=== PATIENT | male | born 1960 | race Caucasian/White ===

== ENCOUNTER 2017-07-22 10:18 | Inpatient (IN) | payer OTHER ==
[2017-07-22 10:40] VITALS: BMI 23.6
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
[2017-07-22] MEDS ORDERED: MAGNESIUM HYDROX 2400MG/30ML ORAL SUSPENSION 30 ML CUP PO PRN (11:32)
[2017-07-22] MEDS ORDERED: hydrOXYzine PAMOATE 50 MG CAPSULE (FP) PO PRN (11:32)
[2017-07-22] MEDS ORDERED: MAG HYDROX/AL HYDROX/SIMETH 30 ML UNIT-DOSE CUP PO PRN (11:32)
[2017-07-22] MEDS ORDERED: NICOTINE POLACRILEX 4 MG GUM BUC PRN (11:32)
[2017-07-22] MEDS ORDERED: P-EPHED 60MG/TRIPROLIDI 2.5MG TABLET PO PRN (11:32)
[2017-07-22] MEDS ORDERED: guaiFENesin/D-METHORPHAN HB 10 ML UNIT-DOSE CUPS PO PRN (11:32)
[2017-07-22] MEDS ORDERED: LOPERAMIDE HCL 2 MG CAPSULE PO PRN (11:32)
[2017-07-22] MEDS ORDERED: chlordiazePOXIDE HCL 25 MG CAPSULE PO ONE (11:32)
[2017-07-22] MEDS ORDERED: ACETAMINOPHEN 325 MG TABLET (FP) PO PRN (11:32)
[2017-07-22] MEDS ORDERED: MENTHOL/PHENOL 1 EACH UD MM PRN (11:32)
[2017-07-22] MEDS ORDERED: chlordiazePOXIDE HCL 25 MG CAPSULE PO PRN (11:32)
[2017-07-22] MEDS ORDERED: MAGNESIUM CITRATE 300 ML BOTTLE PO PRN (11:32)
[2017-07-22] MEDS: LISINOPRIL 5 MG TABLET (FP) PO SCH (13:12)
[2017-07-22] MEDS: PANTOPRAZOLE 40 MG TABLET (FP) PO SCH (13:12)
[2017-07-22] MEDS: METOPROLOL TARTRATE 50 MG TABLET (FP) PO SCH ×2 (13:12→22:19)
[2017-07-22] MEDS: ATORVASTATIN CA 10 MG TABLET (FP) PO SCH ×2 (13:36→22:19)
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
[2017-07-22] MEDS: chlordiazePOXIDE HCL 25 MG CAPSULE PO SCH ×2 (17:23→22:19)
[2017-07-22] MEDS: risperiDONE 1 MG TABLET (FP) PO SCH ×2 (17:45→22:19)
[2017-07-22 20:07] LABS: URINE APPEARANCE CLEAR; URINE BILIRUBIN NEGATIVE (NEGATIVE); URINE BLOOD 1+ (NEGATIVE); URINE COLOR YELLOW; URINE GLUCOSE (UA) NEGATIVE (NEGATIVE); URINE KETONE NEGATIVE (NEGATIVE); URINE NITRITE NEGATIVE (NEGATIVE); URINE UROBILINOGEN NEGATIVE mg/dL (0.2-1.0)
[2017-07-22 20:08] LABS: URINE PROTEIN 1+ (NEGATIVE)
[2017-07-22 20:11] LABS: URINE HYALINE CAST 3 /lpf; URINE MUCUS RARE; URINE RBC <1 /hpf (0-3); URINE WBC 1 /hpf (3-5)
[2017-07-22 21:47] LABS: URINE LEUK ESTERASE Negative (NEGATIVE)
[2017-07-22] MEDS: THIAMINE HCL 100 MG TABLET (FP) PO SCH (22:19)
[2017-07-23] MEDS: chlordiazePOXIDE HCL 25 MG CAPSULE PO SCH ×4 (05:10→22:11)
--- NOTE | 2017-07-23 09:40 | PN ---
S CIWA - CIWA Score Nausea/Vomitin Muscle Tremors: 3 Anxiety: 3 Agitation: 2 Paroxysmal Sweats: 1-Minimal Palms Moist Orientation: 0-Oriented Tacttile Disturbances: 1-Very Mild Itch/Numbness Auditory Disturbances: 1-Very Mild Visual Disturbances: 0-None Headache: 2-Mild CIWA-Ar Total Score: 16 BHS Progress Note (SOAP) Subjective: alert,irritable,anxious,interrupted sleep,tremor Objective: 07/23/17 09:39 Vital Signs Temperature 98 F 07/23/17 09:34 Pulse Rate 71 07/23/17 09:34 Respiratory Rate 16 07/23/17 09:34 Blood Pressure 134/81 07/23/17 09:34 O2 Sat by Pulse Oximetry (%) ekg nsr,normal ecg Laboratory Last Values Manual Slide Review No Result Required. 07/23/17 07:40 Urine Color Yellow 07/22/17 19:00 Urine Appearance Clear 07/22/17 19:00 Urine pH 5.0 (5.0-8.0) 07/22/17 19:00 Ur Specific [place] 1.013 (1.001-1.035) 07/22/17 19:00 Urine Protein 1+ (NEGATIVE) H 07/22/17 19:00 Urine Glucose (UA) Negative (NEGATIVE) 07/22/17 19:00 Urine Ketones Negative (NEGATIVE) 07/22/17 19:00 Urine Blood 1+ (NEGATIVE) H 07/22/17 19:00 Urine Nitrite Negative (NEGATIVE) 07/22/17 19:00 Urine Bilirubin Negative (NEGATIVE) 07/22/17 19:00 Urine Urobilinogen Negative mg/dL (0.2-1.0) 07/22/17 19:00 Ur Leukocyte Esterase Negative (NEGATIVE) 07/22/17 19:00 Urine WBC (Auto) 1 /hpf (3-5) 07/22/17 19:00 Urine RBC (Auto) <1 /hpf (0-3) 07/22/17 19:00 Hyaline Casts 3 /lpf 07/22/17 19:00 Urine Mucus Rare 07/22/17 19:00 labs pending Assessment: 07/23/17 09:39 withdrawal symptom Plan: continue detox
[2017-07-23 10:12] LABS: MCH 32.9 pg (25.7-33.7); MCHC 33.1 g/dl (32.0-35.9); MEAN CELL VOLUME 99.4 fl (80-96); MEAN PLT VOLUME 9.6 fl (7.5-11.1); PLATELET COUNT 154 K/MM3 (134-434); RDW 16.4 % (11.9-15.9); WHITE BLOOD COUNT 6.2 K/mm3 (4.0-10.0)
[2017-07-23 10:26] LABS: ALBUMIN 3.2 g/dl (3.4-5.0); ALK PHOS 86 U/L (45-117); ANION GAP 9 (8-16); BILIRUBIN,TOTAL 0.6 mg/dL (0.2-1.0); CALCIUM 8.2 mg/dL (8.5-10.1); CO2 24 mmol/L (21-32); CREATININE 1.6 mg/dL (0.7-1.3); GLUCOSE,RANDOM 98 mg/dL (74-106); SGOT/AST 43 U/L (15-37); SGPT/ALT 44 U/L (12-78); TOT PROT 6.3 g/dl (6.4-8.2)
[2017-07-23] MEDS: ASPIRIN COATED 81 MG TABLET.EC PO SCH (10:28)
[2017-07-23] MEDS: CITALOPRAM HYDROBROMIDE 20 MG TABLET (FP) PO SCH (10:28)
[2017-07-23] MEDS: risperiDONE 1 MG TABLET (FP) PO SCH ×2 (10:28→22:11)
[2017-07-23] MEDS: PRENATAL VITAMINS W/ FOLIC ACID TABLET (FP) PO SCH (10:28)
[2017-07-23] MEDS: PANTOPRAZOLE 40 MG TABLET (FP) PO SCH (10:28)
[2017-07-23] MEDS: LISINOPRIL 5 MG TABLET (FP) PO SCH (11:08)
[2017-07-23] MEDS: METOPROLOL TARTRATE 50 MG TABLET (FP) PO SCH ×2 (11:19→22:11)
[2017-07-23] MEDS: ATORVASTATIN CA 10 MG TABLET (FP) PO SCH (22:11)
[2017-07-23] MEDS: THIAMINE HCL 100 MG TABLET (FP) PO SCH (22:11)
--- NOTE | 2017-07-24 03:05 | PN ---
[facility] Progress Note Note: Patient was found on the floor as per nurse. Patient was seen and examined at bedside. He reports minimal pain at this time and alleged that he hit his head when he fell. No injury, confusion or change in mental status noted on examination. He is alert and oriented to person, place and time. V/S B/P 148/89 , HR 64, RR 16 Temp. 96.8F. Patient is to be transferred to ER for further evaluation. Endorsed to NAWAF Biswas in ER
[2017-07-24] MEDS: chlordiazePOXIDE HCL 25 MG CAPSULE PO SCH ×2 (07:24→10:24)
[2017-07-24] MEDS ORDERED: LISINOPRIL 20 MG TABLET (FP) PO SCH (10:00)
[2017-07-24] MEDS: risperiDONE 1 MG TABLET (FP) PO SCH (10:21)
[2017-07-24] MEDS: METOPROLOL TARTRATE 50 MG TABLET (FP) PO SCH ×2 (10:21→22:15)
[2017-07-24] MEDS: CITALOPRAM HYDROBROMIDE 20 MG TABLET (FP) PO SCH (10:21)
[2017-07-24] MEDS: PRENATAL VITAMINS W/ FOLIC ACID TABLET (FP) PO SCH (10:21)
[2017-07-24] MEDS: PANTOPRAZOLE 40 MG TABLET (FP) PO SCH (10:21)
[2017-07-24] MEDS: ASPIRIN COATED 81 MG TABLET.EC PO SCH (10:22)
--- NOTE | 2017-07-24 10:37 | PN ---
[facility] CIWA - CIWA Score Nausea/Vomitin-No Nausea/No Vomiting Muscle Tremors: 4-Moderate,w/Arms Extend Anxiety: 3 Agitation: 4-Moderately Restless Paroxysmal Sweats: 3 Orientation: 0-Oriented Tacttile Disturbances: 0-None Auditory Disturbances: 0-None Visual Disturbances: 0-None Headache: 0-None Present CIWA-Ar Total Score: 14 BHS Progress Note (SOAP) Subjective: sweats shakes body aches Objective: 07/24/17 10:36 Vital Signs Temperature 97.7 F 07/24/17 09:26 Pulse Rate 60 07/24/17 09:26 Respiratory Rate 18 07/24/17 09:26 Blood Pressure 147/86 07/24/17 09:26 O2 Sat by Pulse Oximetry (%) Laboratory Tests 07/22/17 07/23/17 07/23/17 19:00 07:40 07:40 WBC 6.2 RBC 4.02 Hgb 13.2 D Hct 39.9 MCV 99.4 H MCH 32.9 MCHC 33.1 RDW 16.4 H Plt Count 154 MPV 9.6 Manual Slide Review No Result Required. Sodium 139 Potassium 3.6 Chloride 106 Carbon Dioxide 24 Anion Gap 9 BUN 17 D Creatinine 1.6 H Creat Clearance w eGFR 44.46 Random Glucose 98 Calcium 8.2 L Total Bilirubin 0.6 D AST 43 H D ALT 44 D Alkaline Phosphatase 86 D Total Protein 6.3 L Albumin 3.2 L Urine Color Yellow Urine Appearance Clear Urine pH 5.0 Ur Specific [place] 1.013 Urine Protein 1+ H Urine Glucose (UA) Negative Urine Ketones Negative Urine Blood 1+ H Urine Nitrite Negative Urine Bilirubin Negative Urine Urobilinogen Negative Ur Leukocyte Esterase Negative Urine WBC (Auto) 1 Urine RBC (Auto) <1 Hyaline Casts 3 Urine Mucus Rare RPR Titer 07/23/17 07:40 WBC RBC Hgb Hct MCV MCH MCHC RDW Plt Count MPV Manual Slide Review Sodium Potassium Chloride Carbon Dioxide Anion Gap BUN Creatinine Creat Clearance w eGFR Random Glucose Calcium Total Bilirubin AST ALT Alkaline Phosphatase Total Protein Albumin Urine Color Urine Appearance Urine pH Ur Specific [place] Urine Protein Urine Glucose (UA) Urine Ketones Urine Blood Urine Nitrite Urine Bilirubin Urine Urobilinogen Ur Leukocyte Esterase Urine WBC (Auto) Urine RBC (Auto) Hyaline Casts Urine Mucus RPR Titer Nonreactive aaox3 ambulating no acute distress Assessment: 07/24/17 10:37 withdrawal sx Plan: continue detox increase fluids
[2017-07-24] MEDS: chlordiazePOXIDE 5 MG CAPSULE PO SCH ×2 (17:41→22:15)
[2017-07-24] MEDS: THIAMINE HCL 100 MG TABLET (FP) PO SCH (22:15)
[2017-07-24] MEDS: ATORVASTATIN CA 10 MG TABLET (FP) PO SCH (22:15)
--- NOTE | 2017-07-25 01:03 | EKG ---
Test Reason : Blood Pressure : / mmHG Vent. Rate : 072 BPM Atrial Rate : 072 BPM P-R Int : 122 ms QRS Dur : 080 ms QT Int : 404 ms P-R-T Axes : 061 020 028 degrees QTc Int : 442 ms NORMAL SINUS RHYTHM NORMAL ECG NO PREVIOUS ECGS AVAILABLE Confirmed by JYOTI RENDON MD ([id number]) on 07/25/2017 1:03:13 AM Referred By: Confirmed By:JYOTI RENDON MD
[2017-07-25] MEDS: chlordiazePOXIDE 5 MG CAPSULE PO SCH (05:44)
[2017-07-25 06:25] VITALS: PULSE 57
--- NOTE | 2017-07-25 09:25 | PN ---
BHS Progress Note (SOAP) Subjective: nausea, sweats, interrutped sleep, anxiety patient expressing desire to leave today, left unit before signing out and brought back Objective: 07/25/17 09:23 Vital Signs - 8 hr 07/25/17 07/25/17 03:30 06:00 Temperature 98.2 F Pulse Rate 57 L Respiratory 18 18 Rate Blood Pressure 154/92 Laboratory Tests 07/22/17 07/23/17 07/23/17 19:00 07:40 07:40 WBC 6.2 RBC 4.02 Hgb 13.2 D Hct 39.9 MCV 99.4 H MCH 32.9 MCHC 33.1 RDW 16.4 H Plt Count 154 MPV 9.6 Manual Slide Review No Result Required. Sodium 139 Potassium 3.6 Chloride 106 Carbon Dioxide 24 Anion Gap 9 BUN 17 D Creatinine 1.6 H Creat Clearance w eGFR 44.46 Random Glucose 98 Calcium 8.2 L Total Bilirubin 0.6 D AST 43 H D ALT 44 D Alkaline Phosphatase 86 D Total Protein 6.3 L Albumin 3.2 L Urine Color Yellow Urine Appearance Clear Urine pH 5.0 Ur Specific [place] 1.013 Urine Protein 1+ H Urine Glucose (UA) Negative Urine Ketones Negative Urine Blood 1+ H Urine Nitrite Negative Urine Bilirubin Negative Urine Urobilinogen Negative Ur Leukocyte Esterase Negative Urine WBC (Auto) 1 Urine RBC (Auto) <1 Hyaline Casts 3 Urine Mucus Rare RPR Titer 07/23/17 07:40 WBC RBC Hgb Hct MCV MCH MCHC RDW Plt Count MPV Manual Slide Review Sodium Potassium Chloride Carbon Dioxide Anion Gap BUN Creatinine Creat Clearance w eGFR Random Glucose Calcium Total Bilirubin AST ALT Alkaline Phosphatase Total Protein Albumin Urine Color Urine Appearance Urine pH Ur Specific [place] Urine Protein Urine Glucose (UA) Urine Ketones Urine Blood Urine Nitrite Urine Bilirubin Urine Urobilinogen Ur Leukocyte Esterase Urine WBC (Auto) Urine RBC (Auto) Hyaline Casts Urine Mucus RPR Titer Nonreactive macrocytosis, elevated creatinine, dehydration Assessment: 07/25/17 09:24 withdrawal sx, macrosytosi, dehydration Plan: cont detox, repeat labs in AM check ammonia evel, hydrate pitcher at bedside.
--- NOTE | 2017-07-25 09:54 | DS ---
[facility] Detox Discharge Summary Admission Date: 07/22/17 Discharge Date: 07/25/17 - History Present History: Alcohol Dependence Additional Comments: patient walked off the unit because he did not want to complete detox, assess for competency in security, a nad ox3, risks of not completing detox discussed including seizures, DTs and . Patient will sign out AMA, not to returnn to unit to complete paperwork as he left, nursing informed, f/u PCP for medical conditions after d/c, no prescriptions sent. - Physical Exam Results Vital Signs: Vital Signs Temperature 98.2 F 07/25/17 06:00 Pulse Rate 57 L 07/25/17 06:00 Respiratory Rate 18 07/25/17 06:00 Blood Pressure 154/92 07/25/17 06:00 O2 Sat by Pulse Oximetry (%) Laboratory Tests 07/22/17 07/23/17 07/23/17 19:00 07:40 07:40 WBC 6.2 RBC 4.02 Hgb 13.2 D Hct 39.9 MCV 99.4 H MCH 32.9 MCHC 33.1 RDW 16.4 H Plt Count 154 MPV 9.6 Manual Slide Review No Result Required. Sodium 139 Potassium 3.6 Chloride 106 Carbon Dioxide 24 Anion Gap 9 BUN 17 D Creatinine 1.6 H Creat Clearance w eGFR 44.46 Random Glucose 98 Calcium 8.2 L Total Bilirubin 0.6 D AST 43 H D ALT 44 D Alkaline Phosphatase 86 D Total Protein 6.3 L Albumin 3.2 L Urine Color Yellow Urine Appearance Clear Urine pH 5.0 Ur Specific [place] 1.013 Urine Protein 1+ H Urine Glucose (UA) Negative Urine Ketones Negative Urine Blood 1+ H Urine Nitrite Negative Urine Bilirubin Negative Urine Urobilinogen Negative Ur Leukocyte Esterase Negative Urine WBC (Auto) 1 Urine RBC (Auto) <1 Hyaline Casts 3 Urine Mucus Rare RPR Titer 07/23/17 07:40 WBC RBC Hgb Hct MCV MCH MCHC RDW Plt Count MPV Manual Slide Review Sodium Potassium Chloride Carbon Dioxide Anion Gap BUN Creatinine Creat Clearance w eGFR Random Glucose Calcium Total Bilirubin AST ALT Alkaline Phosphatase Total Protein Albumin Urine Color Urine Appearance Urine pH Ur Specific [place] Urine Protein Urine Glucose (UA) Urine Ketones Urine Blood Urine Nitrite Urine Bilirubin Urine Urobilinogen Ur Leukocyte Esterase Urine WBC (Auto) Urine RBC (Auto) Hyaline Casts Urine Mucus RPR Titer Nonreactive dehydraton, macrosytosis Pertinent Admission Physical Exam Findings: withdrawal sx, dehydration - Treatment Hospital Course: Detox Protocol Followed Patient has Accepted a Rehab Referral to: Yes - Medication Discharge Medications: Ambulatory Orders Aspirin Coated [Ecotrin -] 81 mg PO DAILY #30 tablet.ec 07/08/16 Lisinopril [Prinivil] 20 mg PO DAILY #30 tablet 07/08/16 Metoprolol Tartrate [Lopressor -] 50 mg PO BID #60 tablet 07/08/16 Pantoprazole Sodium [Protonix -] 40 mg PO DAILY #30 tablet.ec 07/08/16 Simvastatin [Zocor -] 40 mg PO HS #30 tablet 07/08/16 Citalopram Hydrobromide [Celexa -] 40 mg PO DAILY #30 tablet 07/20/16 Risperidone [Risperdal -] 2 mg PO HS #30 tablet 07/20/16 - Diagnosis (1) Nicotine dependence Current Visit: Yes Status: Acute Qualifiers: Nicotine product type: cigarettes Substance use status: uncomplicated Qualified Code(s): F17.210 - Nicotine dependence, cigarettes, uncomplicated (2) Alcohol dependence with uncomplicated withdrawal Current Visit: Yes Status: Chronic (3) CAD (coronary artery disease) Current Visit: Yes Status: Chronic Qualifiers: Coronary Disease-Associated Artery/Lesion type: bypass graft Associated angina: without angina (4) Cocaine abuse Current Visit: Yes Status: Chronic (5) Drug-induced mood disorder Current Visit: Yes Status: Chronic (6) Schizoaffective disorder Current Visit: Yes Status: Chronic (7) GERD (gastroesophageal reflux disease) Current Visit: No Status: Chronic Qualifiers: Esophagitis presence: without esophagitis Qualified Code(s): K21.9 - Gastro -esophageal reflux disease without esophagitis (8) HTN (hypertension) Current Visit: No Status: Chronic Qualifiers: Hypertension type: essential hypertension Qualified Code(s): I10 - Essential (primary) hypertension (9) Hypercholesteremia Current Visit: No Status: Chronic (10) Major depressive disorder, recurrent episode, severe, with psychosis Current Visit: No Status: Suspected (11) Type 2 diabetes mellitus Current Visit: No Status: Resolved Qualifiers: Diabetes mellitus complication status: without complication Diabetes mellitus regional intermodal truck driver insulin use: without regional intermodal truck driver use Qualified Code(s): E11.9 - Type 2 diabetes mellitus without complications - AMA Did Patient Leave Against Medical Advice: Yes
[2017-07-25 10:44] VITALS: BP 142/84; TEMP 97.5
[2017-07-25] MEDS ORDERED: chlordiazePOXIDE HCL 10 MG CAPSULE PO SCH (17:00)
== END 2017-07-25 09:50 | disposition left against medical advice (07) | DRG 894 ==
LOC: YASAS 10:18 → Y6N 12:16
PROVIDERS: ADMIT Internal Medicine; ATTEND Internal Medicine
PROC: HZ2ZZZZ Detoxification Services for Substance Abuse Treatment (ICD-10-PCS; principal; 2017-07-22)
DX: F10.230 Alcohol dependence with withdrawal, uncomplicated (principal); F33.3 Major depressive disorder, recurrent, severe with psychotic symptoms; I25.810 Atherosclerosis of coronary artery bypass graft(s) without angina pectoris; F14.10 Cocaine abuse, uncomplicated; F17.210 Nicotine dependence, cigarettes, uncomplicated; F19.24 Other psychoactive substance dependence with psychoactive substance-induced mood disorder; F25.9 Schizoaffective disorder, unspecified; I10 Essential (primary) hypertension; K21.9 Gastro-esophageal reflux disease without esophagitis; E78.00 Pure hypercholesterolemia, unspecified; E11.9 Type 2 diabetes mellitus without complications; D75.89 Other specified diseases of blood and blood-forming organs; R79.89 Other specified abnormal findings of blood chemistry; E86.0 Dehydration; Z95.1 Presence of aortocoronary bypass graft; Z86.69 Personal history of other diseases of the nervous system and sense organs; Z91.5 Personal history of self-harm; W19.XXXA Unspecified fall, initial encounter; Y93.9 Activity, unspecified; Y92.230 Patient room in hospital as the place of occurrence of the external cause
CPT/HCPCS: 36415; 80053; 81003; 81015; 85027; 86593; 93005; 93010; J2794

== ENCOUNTER 2017-07-24 04:03 | Emergency (ER) | payer OTHER ==
[2017-07-24 04:21] VITALS: TEMP 97.6; BMI 27.1
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
[2017-07-24 07:36] VITALS: BP 148/66; PULSE 65
== END 2017-07-24 07:37 | disposition home or self-care (01) ==
LOC: JER 04:03
DX: S00.03XA Contusion of scalp, initial encounter (principal); W01.198A Fall on same level from slipping, tripping and stumbling with subsequent striking against other object, initial encounter; Y93.89 Activity, other specified; Y92.230 Patient room in hospital as the place of occurrence of the external cause; I25.10 Atherosclerotic heart disease of native coronary artery without angina pectoris; I10 Essential (primary) hypertension; F17.210 Nicotine dependence, cigarettes, uncomplicated; Z95.1 Presence of aortocoronary bypass graft; Z95.5 Presence of coronary angioplasty implant and graft; F10.20 Alcohol dependence, uncomplicated
CPT/HCPCS: 70450-TC; 99282-25